=== PATIENT | male | born 1970 | race Caucasian/White ===

== ENCOUNTER 2019-05-09 14:36 | Outpatient (CLI) | payer OTHER | END 2019-05-09 23:59 | disposition home or self-care (01) | LOC: CVU 14:36 | PROVIDERS: ATTEND Physician Assistant | DX: I73.9 Peripheral vascular disease, unspecified (principal); R60.0 Localized edema; F17.200 Nicotine dependence, unspecified, uncomplicated | CPT/HCPCS: 93922 ==

== ENCOUNTER 2019-11-08 10:02 | Emergency (ER) | payer OTHER ==
[~2019-11-08] VITALS: Ht 180.3 cm; Wt 67.4 kg
--- NOTE | 2019-11-08 10:16 | NUR ---
MAYNOR WILLIAM AT BEDSIDE FOR EVAL. THIS IS A 49 YO MALE WHO PRESENTS TO THE ER C/O "ALL OVER" MUSCLE CRAMPING X 2 DAYS. PT C/O GENERALIZED FATIGUE WELL. PT RECENTLY RE-STARTED TAKING LOSARTAN. PT AO X 4. SKIN PWD. RESP EVEN AND UNLABORED. CALL LIGHT WITHIN REACH. WILL CONT TO MONITOR PT.
[2019-11-08] MEDS ORDERED: HYDR12.517 PO (10:33)
[2019-11-08] MEDS ORDERED: LOSA25TA25 PO (10:33)
--- NOTE | 2019-11-08 10:33 | NUR ---
REPORT TO PRIMARY RN CARMEN WHO ASSUMED CARE OF PT.
[2019-11-08 10:35] LABS: MICROSCOPIC NOT IND
[2019-11-08 10:46] LABS: BASOPHILS # (AUTO) 0.07 x10^3/uL (0-0.1); BASOPHILS % (AUTO) 1 % (0-1); EOSINOPHILS # (AUTO) 0.19 x10^3/uL (0-0.4); EOSINOPHILS % (AUTO) 2 % (1-7); LYMPHOCYTES # (AUTO) 2.44 x10^3/uL (1-3.4); LYMPHOCYTES % (AUTO) 25 % (22-44); MD NO; MEAN CORPUSCULAR HEMOGLOBIN 34.3 pg (27.5-34.5); MEAN CORPUSCULAR HGB CONC 33.4 g/dL (33.2-36.2); MEAN CORPUSCULAR VOLUME 102.7 fL (81-97); MEAN PLATELET VOLUME 7.6 fL (7.4-10.4); MONOCYTES # (AUTO) 0.72 x10^3/uL (0.2-0.8); MONOCYTES % (AUTO) 7 % (2-9); NEUTROPHILS # (AUTO) 6.49 x10^3/uL (1.8-6.8); NEUTROPHILS % (AUTO) 66 % (42-75); PLATELET COUNT 190 x10^3/uL (130-400); RED BLOOD COUNT 4.68 x10^6/uL (4.38-5.82); RED CELL DISTRIBUTION WIDTH 14.3 % (9.4-14.8)
[2019-11-08 10:57] LABS: INTERNATIONAL NORMALIZED RATIO 1.08 (0.93-1.1); PROTHROMBIN TIME 11.5 Seconds (9.6-11.5)
[2019-11-08 10:58] LABS: ALBUMIN 2.9 g/dL (3.4-5.0); ANION GAP 8 mmol/L (5-15); CALCIUM 8.7 mg/dL (8.5-10.1); CHLORIDE 98 mmol/L (98-107)
[2019-11-08 11:03] LABS: ALANINE AMINOTRANSFERASE 283 U/L (12-78); ALKALINE PHOSPHATASE 123 U/L (45-117); BILIRUBIN,TOTAL 3.8 mg/dL (0.2-1.0); CREATINE KINASE, TOTAL 388 U/L (39-308); CREATININE 0.87 mg/dL (0.7-1.3); TOTAL PROTEIN 7.5 g/dL (6.4-8.2)
[2019-11-08] MEDS ORDERED: SODIUM CHLORIDE FLUSH 10ML SYR IVF ONE (11:30)
--- NOTE | 2019-11-08 13:05 | NUR ---
REPORT FROM TONYA RAE, ASSUME CARE OF PT AT THIS TIME. AWAITING RECHECK BY ERP.
--- NOTE | 2019-11-08 13:07 | NUR ---
REPORT TO NICOLE RAE
[2019-11-08 14:02] VITALS: BP 122/61
== END 2019-11-08 14:06 | disposition home or self-care (01) ==
LOC: ED 11:26
DX: K70.10 Alcoholic hepatitis without ascites (principal); E87.6 Hypokalemia; E87.1 Hypo-osmolality and hyponatremia; I25.2 Old myocardial infarction; I10 Essential (primary) hypertension; F17.200 Nicotine dependence, unspecified, uncomplicated
CPT/HCPCS: 36415; 76700; 80053; 81003; 82550; 83605; 83735; 85025; 85610; 93005; 99285

== ENCOUNTER 2020-02-09 10:21 | Outpatient (CLI) | payer OTHER ==
[~2020-02-09 10:21] MED LIST: HYDR12.517 PO; LOSA25TA25 PO
== END 2020-02-09 23:59 | disposition home or self-care (01) ==
LOC: CARD 10:21
PROVIDERS: ATTEND Nurse Practitioner Primary Care
DX: G57.83 Other specified mononeuropathies of bilateral lower limbs (principal); I10 Essential (primary) hypertension
CPT/HCPCS: 95885; 95908

== ENCOUNTER 2020-06-23 02:58 | Emergency (ER) | payer OTHER ==
[~2020-06-23] VITALS: Ht 180.3 cm; Wt 132.0 kg
--- NOTE | 2020-06-23 03:15 | NUR ---
pt ambulated to room 15, calm and cooperative. placed on cr monitor, and a&ox4. states his stomach feels weird after taking different pills at home. sitting in stretcher on the phone. MD to bedside to tej pt.
[2020-06-23] MEDS ORDERED: ONDANSETRON 2MG/ML, 2ML IVPush ONE ×2 (03:30→04:30)
[2020-06-23] MEDS ORDERED: SODIUM CHLORIDE 0.9% 1,000ML IVBOLUS ONE (03:30)
[2020-06-23 03:58] LABS: BASOPHILS % (AUTO) 1 % (0-1); EOSINOPHILS % (AUTO) 0 % (1-7); LYMPHOCYTES % (AUTO) 25 % (22-44); MEAN CORPUSCULAR HEMOGLOBIN 32.7 pg (27.5-34.5); MEAN CORPUSCULAR HGB CONC 34.9 g/dL (33.2-36.2); MEAN PLATELET VOLUME 7.1 fL (7.4-10.4); MONOCYTES % (AUTO) 6 % (2-9); NEUTROPHILS % (AUTO) 69 % (42-75); PLATELET COUNT 228 x10^3/uL (130-400); RED BLOOD COUNT 4.64 x10^6/uL (4.38-5.82)
[2020-06-23 03:59] LABS: ALANINE AMINOTRANSFERASE 87 U/L (12-78); ALBUMIN 3.7 g/dL (3.4-5.0); ANION GAP 6 mmol/L (5-15); CALCIUM 8.7 mg/dL (8.5-10.1); CHLORIDE 106 mmol/L (98-107)
[2020-06-23] MEDS ORDERED: ONDANSETRON 2MG/ML, 2ML ONE ×2 (04:00→04:28)
[2020-06-23 04:02] LABS: ALKALINE PHOSPHATASE 90 U/L (45-117); BILIRUBIN,TOTAL 0.6 mg/dL (0.2-1.0); CREATININE 0.84 mg/dL (0.7-1.3)
[2020-06-23 04:05] LABS: MD NO
--- NOTE | 2020-06-23 04:07 | NUR ---
piv started to right hand x1 attempt. ivf started, 1Liter NS. pt tolerated well.
--- NOTE | 2020-06-23 04:11 | NUR ---
urine collected and sent to lab. pt awake and alert, c/o discomfort to his abdomen at this time, but tolerable, and remains on cr monitor.
[2020-06-23 04:28] LABS: MICROSCOPIC INDICATED
[2020-06-23 04:29] LABS: AMPHETAMINE SCREEN, URINE Negative (Negative); BARBITURATE SCREEN, URINE Negative (Negative); BENZODIAZEPINE SCREEN, URINE Negative (Negative); CANNABINOID SCREEN, URINE Negative (Negative); COCAINE SCREEN, URINE Negative (Negative); METHADONE SCREEN, URINE Negative (Negative); OPIATE SCREEN, URINE Positive (Negative)
--- NOTE | 2020-06-23 04:35 | NUR ---
Note tal in ED - 06/23/20 at 0437 by MAMIE pt awake and alert, sitting up in bed, and texting on his phone. pt a&ox4, on cr monitor and has a patent and good airway, and good aeration and oxygenation.
--- NOTE | 2020-06-23 04:37 | NUR ---
pt awake and contiues to complain of stomach discomfort. another 4mg of zofran given to pt. per MD order. and pt resting. ivf done, and tolerating well.
[2020-06-23] MEDS ORDERED: MORPHINE SULFATE 4 MG/ML, 1ML ONE (05:09)
--- NOTE | 2020-06-23 05:13 | NUR ---
pt continues to complain of discomfort and pain to abdomen. pt now advises the MD that he has a history of gallstones, and forgot to mention it earlier. US ordered. and Morphine pain meds given to pt iv, and charted per EMAR. pt on cr monitor, and in bed with siderails x2 and call light within reach.
[2020-06-23] MEDS ORDERED: MORPHINE SULFATE 4 MG/ML, 1ML IVPush PRN (05:30)
--- NOTE | 2020-06-23 05:43 | NUR ---
pt back from radiology for ultrasound to be done. awake and alert, and calm and cooperative. says he has some relief from discomfort with previous meds. to wait until MD sees and reads the radiology report.
--- NOTE | 2020-06-23 06:19 | NUR ---
pt fast asleep in bed, and on cr monitor. MD to eval pt, and when he woke up he told the MD that he was in a lot of pain and was just meditating. Waiting on radiology to read the ultrasound to follow up on pts needs. siderails up, call light within reach, and pt a&ox4.
[2020-06-23 06:35] VITALS: BP 148/85
--- NOTE | 2020-06-23 06:36 | NUR ---
pt given d/c and f/u instructions and v/u. piv d/cd and cath intact. pt tolerated well.
== END 2020-06-23 06:39 ==
LOC: ED 04:02
DX: K80.70 Calculus of gallbladder and bile duct without cholecystitis without obstruction (principal); I10 Essential (primary) hypertension; F17.290 Nicotine dependence, other tobacco product, uncomplicated
CPT/HCPCS: 36415; 76700; 80053; 80307; 80320; 81001; 83690; 85025; 96361; 96374; 96375; 96376; 99284; 99406; J2270; J2405; J7030; G0480

== ENCOUNTER 2020-10-30 09:42 | Emergency (ER) | payer MEDICAID, OTHER ==
[~2020-10-30] VITALS: Ht 180.3 cm; Wt 147.6 kg
--- NOTE | 2020-10-30 09:49 | NUR ---
pt drinking fluids in triage, advised to be NPO
--- NOTE | 2020-10-30 09:49 | NUR ---
facilities planner: EKG done in triage
--- NOTE | 2020-10-30 10:03 | NUR ---
PT AMBULATED TO ROOM FROM TRIAGE. PT CO SOB AND INCREASED SWELLING IN HANDS, FEETS, LEGS AND ABDOMEN FOR ABOUT 1 WEEK. PT STATED HE WENT TO HIS PCP THIS MORNING AND THEY ADVISED THAT HE GO TO THE ER. PT DENIES ANY CP, FEVER, COUGH OR N/V/D. PT PLACED ON PIT STEWARD, CONTINUOUS SPO2 AND NIBP.
[2020-10-30 10:47] LABS: BASOPHILS % (AUTO) 1 % (0-1); EOSINOPHILS % (AUTO) 4 % (1-7); LYMPHOCYTES % (AUTO) 44 % (22-44); MEAN CORPUSCULAR HEMOGLOBIN 33.7 pg (27.5-34.5); MEAN CORPUSCULAR HGB CONC 34.4 g/dL (33.2-36.2); MEAN PLATELET VOLUME 7.4 fL (7.4-10.4); MONOCYTES % (AUTO) 11 % (2-9); NEUTROPHILS % (AUTO) 39 % (42-75); PLATELET COUNT 161 x10^3/uL (130-400); RED BLOOD COUNT 4.11 x10^6/uL (4.38-5.82); RED CELL DISTRIBUTION WIDTH 13.5 % (9.4-14.8)
[2020-10-30 10:56] LABS: ALANINE AMINOTRANSFERASE 144 U/L (12-78); ALBUMIN 3.1 g/dL (3.4-5.0); ANION GAP 4 mmol/L (5-15); CALCIUM 7.9 mg/dL (8.5-10.1); CHLORIDE 106 mmol/L (98-107)
[2020-10-30 11:00] VITALS: BP 124/76
[2020-10-30 11:00] LABS: INTERNATIONAL NORMALIZED RATIO 1.02 (0.93-1.1); PROTHROMBIN TIME 10.9 Seconds (9.6-11.5)
--- NOTE | 2020-10-30 11:00 | NUR ---
PT RESTING COMFORTABLY IN [facility]. CALL LIGHT WITHIN REACH
[2020-10-30 11:01] LABS: ALKALINE PHOSPHATASE 82 U/L (45-117); BILIRUBIN,TOTAL 0.6 mg/dL (0.2-1.0); TOTAL PROTEIN 6.8 g/dL (6.4-8.2); TROPONIN I < 0.015 ng/mL (0.000-0.045)
[2020-10-30 11:07] LABS: MD SCAN
--- NOTE | 2020-10-30 11:41 | NUR ---
DISCHARGE INSTRUCTIONS REVIEWED WITH PT. ALL QUESTIONS ANSWERED AT THIS TIME.
== END 2020-10-30 11:43 | disposition home or self-care (01) ==
LOC: ED 10:23
DX: E88.09 Other disorders of plasma-protein metabolism, not elsewhere classified (principal); R06.00 Dyspnea, unspecified; R60.0 Localized edema; I10 Essential (primary) hypertension; R94.31 Abnormal electrocardiogram [ECG] [EKG]
CPT/HCPCS: 36415; 71045; 80053; 83880; 84484; 85025; 85610; 85730; 93005; 99285

== ENCOUNTER 2020-12-04 06:10 | Inpatient (IN) | payer MEDICAID ==
[~2020-12-04] VITALS: Ht 180.3 cm; Wt 144.6 kg
[2020-12-04] MEDS ORDERED: LORazepam 1MG TABLET PO ONE (06:30)
--- NOTE | 2020-12-04 06:37 | NUR ---
PT. TO ED WITH C/O WAKING UP FEELING VERY COLD AND SHAKEY. PT. ALSO C/O SOB. RA SAT IN ROOM NOTED TO BE 86%; PT. PLACED ON 2L O2 VIA NC WITH NO INCREASE IN O2 SAT; TURNED UP TO 4L O2 VIA NC WITH INCREASE TO 92%. DENIES USE OF HOME O2. EXPIRATORY WHEZZING NOTED IN ALL LUNG BECERRA UPON AUSCULTATION. EKG WAS DONE IN TRIAGE. PT. PLACED ON ALL MONITORS. SINUS TACH NOTED ON MONITOR. PT. NOTED TO HAVE FREQUENT DRY COUGH WELL. DENIES COVID VACCINE.
[2020-12-04] MEDS ORDERED: LORazepam 1MG TABLET ONE (06:44)
[2020-12-04 06:45] LABS: BASOPHILS % (AUTO) 1 % (0-1); EOSINOPHILS % (AUTO) 1 % (1-7); LYMPHOCYTES % (AUTO) 28 % (22-44); MEAN CORPUSCULAR HEMOGLOBIN 32.9 pg (27.5-34.5); MEAN CORPUSCULAR HGB CONC 33.7 g/dL (33.2-36.2); MEAN PLATELET VOLUME 7.4 fL (7.4-10.4); MONOCYTES % (AUTO) 2 % (2-9); NEUTROPHILS % (AUTO) 68 % (42-75); PLATELET COUNT 186 x10^3/uL (130-400); RED BLOOD COUNT 4.56 x10^6/uL (4.38-5.82); RED CELL DISTRIBUTION WIDTH 13.8 % (9.4-14.8)
--- NOTE | 2020-12-04 06:50 | NUR ---
REPORT FROM JH RAE
[2020-12-04 06:56] LABS: ALANINE AMINOTRANSFERASE 164 U/L (12-78); ALBUMIN 3.2 g/dL (3.4-5.0); ANION GAP 8 mmol/L (5-15); CALCIUM 8.2 mg/dL (8.5-10.1); CHLORIDE 103 mmol/L (98-107); CREATININE 2.09 mg/dL (0.7-1.3)
[2020-12-04 07:00] LABS: ALKALINE PHOSPHATASE 89 U/L (45-117); BILIRUBIN,TOTAL 0.7 mg/dL (0.2-1.0); TOTAL PROTEIN 7.2 g/dL (6.4-8.2); TROPONIN I < 0.015 ng/mL (0.000-0.045)
--- NOTE | 2020-12-04 07:11 | NUR ---
ERP TO BEDSIDE CXR AT BEDSIDE WITH REASSESSMENT REMAINS ANXIOUS DESPITE EARLIER ATIVAN ADMIN BREATH SOUNDS WHEEZING STILL REQUIRING 4L NC FOR POX >90
[2020-12-04] MEDS ORDERED: ALBUTEROL/IPRATROPIUM 2.5MG/0.5MG, 3 ML ONE (07:26)
--- NOTE | 2020-12-04 07:28 | NUR ---
lab at bedside for d-dimer medicated per emar with breathing tx/steroids
[2020-12-04] MEDS ORDERED: ALBUTEROL/IPRATROPIUM 2.5MG/0.5MG, 3 ML NPPB ONE (07:30)
--- NOTE | 2020-12-04 08:13 | NUR ---
POST NEB WHEEZING IMPROVED SLIGHTLY IMPROVED TOE SEWER ATTEMPTED TO WEAN O2 FROM 4L TO 2L-POX DROPS TO 80'S HR ALSO INCREASED TO 120-130S, SBP TO 70/40 ERP TO BEDSIDE REPEAT 12 LEAD ECG OBAINED LARGE BORE PIV PLACED-500ML NS BOLUS STARTED PLACED ON OXYMASK AT 8L TO OBTAIN CT SCAN SHORTLY
[2020-12-04] MEDS ORDERED: SODIUM CHLORIDE 0.9% 1,000ML IVBOLUS ONE ×3 (08:30→10:00)
--- NOTE | 2020-12-04 08:35 | NUR ---
ERP ASKED FOR ATIVAN/ANTIPYRETICS, FURTHER EVAL OF NEW CHEST PAIN. ERP CONSIDERING
--- NOTE | 2020-12-04 08:49 | NUR ---
TO CT SCAN
[2020-12-04] MEDS ORDERED: CEFTRIAXONE 1,000 MG in DEXTROSE 5% 50 ML IVPB ONE ×2 (09:00→11:30)
[2020-12-04] MEDS ORDERED: LORazepam 2 MG/ML, 1ML IVPush PRN (09:00)
[2020-12-04] MEDS ORDERED: AZITHROMYCIN 500 MG in SODIUM CHLORIDE 0.9% 250 ML IV ONE (09:00)
--- NOTE | 2020-12-04 09:00 | NUR ---
REPORT TO ABBY RAE
[2020-12-04] MEDS ORDERED: OMNIPAQUE 350 MG/ML, 100ML BOTTLE ONE (09:13)
--- NOTE | 2020-12-04 09:15 | NUR ---
lab at bedside for blood cultures
[2020-12-04] MEDS ORDERED: MORPHINE SULFATE 4 MG/ML, 1ML ONE ×2 (09:17→12:13)
[2020-12-04] MEDS: MORPHINE SULFATE 4 MG/ML, 1ML IVPush PRN ×2 (09:22→12:14)
--- NOTE | 2020-12-04 09:27 | NUR ---
REPORT FROM BUTCH MORALES. PT BACK FROM CT AND MEDICATED PER MAR AFTER BC X2 DRAWN. PT TEMP NTOED TO BE INCREASING NOW AT 100.[address] CISNEROS MADE AWARE.
[2020-12-04] MEDS ORDERED: BUSP15TA PO (09:28)
[2020-12-04] MEDS ORDERED: OMEP-110 PO (09:28)
[2020-12-04] MEDS ORDERED: MELO15TA24 PO (09:28)
[2020-12-04] MEDS ORDERED: ROPI2TAB8 PO (09:28)
[2020-12-04] MEDS ORDERED: ACETAMINOPHEN 325 MG TABLET PO ONE (09:30)
[2020-12-04] MEDS ORDERED: ACETAMINOPHEN 500 MG TABLET ONE (09:30)
[2020-12-04] MEDS ORDERED: ACETAMINOPHEN 500 MG TABLET PO ONE (09:30)
--- NOTE | 2020-12-04 09:34 | NUR ---
PT CHART REVIEWED AND PLACED FOR RECHECK.
--- NOTE | 2020-12-04 09:53 | NUR ---
DISCUSSED W/ ERP DR. CISNEROS 30 ML/KG BOLUS. PER ERP PT TO RECEIVE 3 L NS PT WEIGHT WOULD REQUIRE 4317 ML NS AND BASED ON PT RESP STATUS AND NEED FOR 8L OXYMASK COULD AFFECT RESP STATUS NEGATIVELY.
--- NOTE | 2020-12-04 10:12 | NUR ---
PT RESTING ON GUMERT. VONDAN. BP INCREASING.
[2020-12-04] MEDS ORDERED: ONDANSETRON 2MG/ML, 2ML IVPush PRN (11:30)
[2020-12-04] MEDS ORDERED: ONDANSETRON ODT 4 MG PO PRN (11:30)
--- NOTE | 2020-12-04 12:10 | NUR ---
REPORT GIVEN TO MABEL, RECEIVING RN. ALL QUESTIONS ANSWERED. AWAITING PT TRANSPORT.
--- NOTE | 2020-12-04 13:10 | NUR ---
PT RESTING ON BEATRIS. SULTANA. VSS. PT AWARE OF POC FOR ADMIT AND IS AGREEABLE. PROVIDED W/ CARDIAC DIET LUNCH TRAY.
[2020-12-04] MEDS: HEPARIN 5,000 UNITS/ML, 1ML SQ SCH ×2 (14:00→21:48)
[2020-12-04] MEDS: LACTATED RINGERS 1,000 ML IV SCH ×2 (14:17→20:26)
[2020-12-04 15:37] VITALS: BP 90/55
[2020-12-04] MEDS: morphine SULFATE 10 MG/ML, 1ML IVPush PRN (17:33)
[2020-12-04 19:30] VITALS: BP 102/61
[2020-12-04] MEDS: ROPINIROLE 1MG TABLET PO SCH (20:26)
[2020-12-05 00:50] VITALS: BP 114/67
[2020-12-05] MEDS: LACTATED RINGERS 1,000 ML IV SCH (04:09)
[2020-12-05 05:38] LABS: BASOPHILS % (AUTO) 0 % (0-1); EOSINOPHILS % (AUTO) 0 % (1-7); LYMPHOCYTES % (AUTO) 13 % (22-44); MEAN CORPUSCULAR HEMOGLOBIN 33.2 pg (27.5-34.5); MEAN CORPUSCULAR HGB CONC 33.5 g/dL (33.2-36.2); MEAN PLATELET VOLUME 7.6 fL (7.4-10.4); MONOCYTES % (AUTO) 6 % (2-9); NEUTROPHILS % (AUTO) 80 % (42-75); PLATELET COUNT 159 x10^3/uL (130-400); RED BLOOD COUNT 3.83 x10^6/uL (4.38-5.82); RED CELL DISTRIBUTION WIDTH 13.9 % (9.4-14.8)
[2020-12-05] MEDS: HEPARIN 5,000 UNITS/ML, 1ML SQ SCH ×3 (05:43→21:22)
[2020-12-05] MEDS: morphine SULFATE 10 MG/ML, 1ML IVPush PRN ×3 (05:53→21:23)
[2020-12-05 06:01] LABS: ALBUMIN 2.6 g/dL (3.4-5.0); ANION GAP 5 mmol/L (5-15); CHLORIDE 106 mmol/L (98-107)
[2020-12-05 06:05] LABS: ALANINE AMINOTRANSFERASE 132 U/L (12-78); ALKALINE PHOSPHATASE 59 U/L (45-117); BILIRUBIN,TOTAL 0.7 mg/dL (0.2-1.0); CALCIUM 7.7 mg/dL (8.5-10.1); CREATININE 0.99 mg/dL (0.7-1.3); TOTAL PROTEIN 6.3 g/dL (6.4-8.2)
[2020-12-05 07:00] VITALS: BP 112/65
[2020-12-05] MEDS: BUSPIRONE 5 MG TABLET PO SCH (09:24)
[2020-12-05] MEDS: CEFTRIAXONE 2 GM in DEXTROSE 5% 50 ML IVPB SCH (09:24)
[2020-12-05] MEDS: OMEPRAZOLE 20 MG CAPSULE.DR PO SCH (09:25)
[2020-12-05] MEDS: AZITHROMYCIN 500 MG in SODIUM CHLORIDE 0.9% 250 ML IV SCH (10:33)
[2020-12-05 13:00] VITALS: BP 121/73
[2020-12-05] MEDS: ACETAMINOPHEN 325 MG TABLET PO PRN (16:00)
[2020-12-05 19:36] VITALS: BP 138/81
[2020-12-05] MEDS: ROPINIROLE 1MG TABLET PO SCH (21:23)
[2020-12-05 23:49] VITALS: BP 150/83
[2020-12-06] VITALS: BP 145/83
[2020-12-06 05:11] LABS: BASOPHILS % (AUTO) 1 % (0-1); EOSINOPHILS % (AUTO) 1 % (1-7); LYMPHOCYTES % (AUTO) 21 % (22-44); MEAN CORPUSCULAR HEMOGLOBIN 33.2 pg (27.5-34.5); MEAN CORPUSCULAR HGB CONC 33.7 g/dL (33.2-36.2); MEAN PLATELET VOLUME 8.2 fL (7.4-10.4); MONOCYTES % (AUTO) 5 % (2-9); NEUTROPHILS % (AUTO) 72 % (42-75); PLATELET COUNT 161 x10^3/uL (130-400); RED BLOOD COUNT 3.95 x10^6/uL (4.38-5.82); RED CELL DISTRIBUTION WIDTH 14.1 % (9.4-14.8)
[2020-12-06 05:25] LABS: ANION GAP 3 mmol/L (5-15); CALCIUM 8.4 mg/dL (8.5-10.1); CHLORIDE 107 mmol/L (98-107)
[2020-12-06 05:54] LABS: CREATININE 0.51 mg/dL (0.7-1.3)
[2020-12-06] MEDS: HEPARIN 5,000 UNITS/ML, 1ML SQ SCH ×3 (06:17→21:43)
[2020-12-06] MEDS: ACETAMINOPHEN 325 MG TABLET PO PRN ×2 (06:23→10:41)
[2020-12-06 07:14] VITALS: BP 148/83
[2020-12-06] MEDS: CEFTRIAXONE 2 GM in DEXTROSE 5% 50 ML IVPB SCH (09:02)
[2020-12-06] MEDS: BUSPIRONE 5 MG TABLET PO SCH (09:02)
[2020-12-06] MEDS: OMEPRAZOLE 20 MG CAPSULE.DR PO SCH (09:03)
[2020-12-06] MEDS: AZITHROMYCIN 500 MG in SODIUM CHLORIDE 0.9% 250 ML IV SCH (10:28)
[2020-12-06] MEDS: morphine SULFATE 10 MG/ML, 1ML IVPush PRN ×4 (10:41→21:51)
[2020-12-06 15:19] VITALS: BP 142/87
[2020-12-06 18:45] VITALS: BP 147/84
[2020-12-06] MEDS: PREGABALIN 200 MG CAPSULE PO SCH (21:43)
[2020-12-06] MEDS: ROPINIROLE 1MG TABLET PO SCH (21:43)
[2020-12-07 02:50] VITALS: BP 144/98
[2020-12-07] MEDS: HEPARIN 5,000 UNITS/ML, 1ML SQ SCH ×3 (05:22→21:44)
[2020-12-07 05:44] LABS: BASOPHILS % (AUTO) 1 % (0-1); EOSINOPHILS % (AUTO) 2 % (1-7); LYMPHOCYTES % (AUTO) 28 % (22-44); MEAN CORPUSCULAR HEMOGLOBIN 33.4 pg (27.5-34.5); MEAN CORPUSCULAR HGB CONC 34.4 g/dL (33.2-36.2); MEAN PLATELET VOLUME 7.6 fL (7.4-10.4); MONOCYTES % (AUTO) 8 % (2-9); NEUTROPHILS % (AUTO) 61 % (42-75); PLATELET COUNT 163 x10^3/uL (130-400); RED BLOOD COUNT 3.95 x10^6/uL (4.38-5.82); RED CELL DISTRIBUTION WIDTH 13.6 % (9.4-14.8)
[2020-12-07 05:51] LABS: ALBUMIN 2.8 g/dL (3.4-5.0); ANION GAP 5 mmol/L (5-15); CALCIUM 8.5 mg/dL (8.5-10.1); CHLORIDE 107 mmol/L (98-107)
[2020-12-07 05:54] LABS: ALANINE AMINOTRANSFERASE 149 U/L (12-78); ALKALINE PHOSPHATASE 62 U/L (45-117); BILIRUBIN,TOTAL 0.5 mg/dL (0.2-1.0); CREATININE 0.52 mg/dL (0.7-1.3); TOTAL PROTEIN 6.6 g/dL (6.4-8.2)
[2020-12-07 07:23] VITALS: BP 129/69
[2020-12-07] MEDS: PREGABALIN 200 MG CAPSULE PO SCH ×2 (08:33→21:44)
[2020-12-07] MEDS: OMEPRAZOLE 20 MG CAPSULE.DR PO SCH (08:34)
[2020-12-07] MEDS: BUSPIRONE 5 MG TABLET PO SCH (08:34)
[2020-12-07] MEDS: morphine SULFATE 10 MG/ML, 1ML IVPush PRN (08:34)
[2020-12-07] MEDS: CEFTRIAXONE 2 GM in DEXTROSE 5% 50 ML IVPB SCH (08:35)
[2020-12-07] MEDS: AZITHROMYCIN 500 MG in SODIUM CHLORIDE 0.9% 250 ML IV SCH (09:45)
[2020-12-07] MEDS: OXYcodone IR 5MG TABLET PO PRN ×2 (13:10→19:56)
[2020-12-07 14:29] VITALS: BP 166/97
[2020-12-07] MEDS ORDERED: FUROSEMIDE 20 MG/2 ML IV ONE (14:30)
[2020-12-07 19:31] VITALS: BP 135/79
[2020-12-07] MEDS: ROPINIROLE 1MG TABLET PO SCH (21:44)
[2020-12-08 00:45] VITALS: BP 142/84
[2020-12-08] MEDS: ACETAMINOPHEN 325 MG TABLET PO PRN (00:49)
[2020-12-08 04:39] LABS: BASOPHILS % (AUTO) 1 % (0-1); EOSINOPHILS % (AUTO) 3 % (1-7); LYMPHOCYTES % (AUTO) 33 % (22-44); MEAN CORPUSCULAR HEMOGLOBIN 33.1 pg (27.5-34.5); MEAN CORPUSCULAR HGB CONC 34.1 g/dL (33.2-36.2); MONOCYTES % (AUTO) 8 % (2-9); NEUTROPHILS % (AUTO) 55 % (42-75); PLATELET COUNT 195 x10^3/uL (130-400); RED BLOOD COUNT 4.22 x10^6/uL (4.38-5.82); RED CELL DISTRIBUTION WIDTH 13.4 % (9.4-14.8)
[2020-12-08 04:40] LABS: ANION GAP 6 mmol/L (5-15); CALCIUM 9.1 mg/dL (8.5-10.1); CHLORIDE 106 mmol/L (98-107)
[2020-12-08] MEDS: HEPARIN 5,000 UNITS/ML, 1ML SQ SCH (06:01)
[2020-12-08 06:02] VITALS: BP 119/59
[2020-12-08] MEDS: OXYcodone IR 5MG TABLET PO PRN ×2 (06:02→12:15)
[2020-12-08 07:24] VITALS: BP 126/74
[2020-12-08] MEDS: BUSPIRONE 5 MG TABLET PO SCH (08:49)
[2020-12-08] MEDS: CEFTRIAXONE 2 GM in DEXTROSE 5% 50 ML IVPB SCH (08:49)
[2020-12-08] MEDS: OMEPRAZOLE 20 MG CAPSULE.DR PO SCH (08:49)
[2020-12-08] MEDS: PREGABALIN 200 MG CAPSULE PO SCH (08:49)
[2020-12-08] MEDS ORDERED: AZIT250T PO (08:52)
[2020-12-08] MEDS: AZITHROMYCIN 500 MG in SODIUM CHLORIDE 0.9% 250 ML IV SCH (10:10)
[2020-12-08 11:02] VITALS: BP 119/77
== END 2020-12-08 12:43 | disposition home or self-care (01) | DRG 871 ==
LOC: ED 06:50 → EDIP 09:49 → 4WST 13:23 → DCLOUNGE 12-08 12:32
PROVIDERS: ADMIT Internal Medicine; ATTEND Hospitalist
DX: A41.9 Sepsis, unspecified organism (principal); J18.9 Pneumonia, unspecified organism; J96.01 Acute respiratory failure with hypoxia; N17.0 Acute kidney failure with tubular necrosis; E66.2 Morbid (severe) obesity with alveolar hypoventilation; J44.0 Chronic obstructive pulmonary disease with (acute) lower respiratory infection; J44.1 Chronic obstructive pulmonary disease with (acute) exacerbation; Z68.41 Body mass index [BMI] 40.0-44.9, adult; E11.22 Type 2 diabetes mellitus with diabetic chronic kidney disease; G89.29 Other chronic pain; I12.9 Hypertensive chronic kidney disease with stage 1 through stage 4 chronic kidney disease, or unspecified chronic kidney disease; Z20.822 Contact with and (suspected) exposure to COVID-19; K21.9 Gastro-esophageal reflux disease without esophagitis; K76.0 Fatty (change of) liver, not elsewhere classified; N18.9 Chronic kidney disease, unspecified; R65.20 Severe sepsis without septic shock; Z79.899 Other long term (current) drug therapy; Z79.891 Long term (current) use of opiate analgesic; Z79.01 Long term (current) use of anticoagulants
CPT/HCPCS: 36415; 71045; 71275; 80048; 80053; 80320; 82607; 83605; 83735; 83880; 84100; 84145; 84484; 85025; 85379; 87040; 87070; 87205; 93005; 96374; G0378; J0456; J0696; J1644; Q9967; U0005; G0480; J1940; J2270; J7030; J7050; J7120; J7512; U0003